=== PATIENT | female | born 1975 | race Caucasian/White ===

== ENCOUNTER 2020-07-23 09:09 | Emergency (ER) | payer MEDICAID ==
[~2020-07-23] VITALS: Ht 157.5 cm; Wt 86.2 kg
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
[2020-07-23 10:00] VITALS: BP 123/74
[2020-07-23] MEDS ORDERED: ROBAXIN-750750 MG PO (10:02)
[2020-07-23] MEDS ORDERED: IBUPROFEN600 M1 ORAL (10:02)
[2020-07-23] MEDS: Methocarbamol 500mg tab ORAL ONE (10:04)
[2020-07-23] MEDS: Ketorolac 60mg Inj IM ONE (10:05)
--- NOTE | 2020-07-23 10:09 | NUR ---
ED Nurse Note: pt en route to radiology
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
--- NOTE | 2020-07-23 11:13 | Diagnostic Imaging Report ---
Indication: Back pain status post injury Technique: 5 views of the thoracic spine Comparison: None Findings: Bony mineralization within normal limits. No radiographically appreciable acute thoracic spine fracture. Vertebral body heights are maintained. There is no evidence of compression fracture. There is very mild degenerative changes. Imaged portions of lungs clear. No radiopaque foreign body identified. Impression: No appreciable thoracic spine fracture.
[2020-07-23 12:14] VITALS: BP 123/74
--- NOTE | 2020-07-23 12:15 | NUR ---
DISCHARGED HOME WITH INSTRUCTION AND RX FOLLOW UP WITH PMD
== END 2020-07-23 12:15 | disposition home or self-care (01) ==
LOC: EMR 09:50
DX: S16.1XXA Strain of muscle, fascia and tendon at neck level, initial encounter (principal); Y04.2XXA Assault by strike against or bumped into by another person, initial encounter; Y93.9 Activity, unspecified; Y92.89 Other specified places as the place of occurrence of the external cause; Z91.018 Allergy to other foods
CPT/HCPCS: 72070; 72125; 96372; Z7502; 99284